=== PATIENT | female | born 1955 | race Caucasian/White ===

== ENCOUNTER 2020-03-14 00:30 | Outpatient (CLI) | payer BC, SELFPAY ==
[2020-03-14 17:34] LABS: SARS-CoV-2 RNA PCR Negative
== END 2020-03-14 00:31 | disposition home or self-care (01) ==
LOC: ANHCOVIDDT 00:30
PROVIDERS: PCP Family Medicine; Visit Provider Internal Medicine Gastroenterology
DX: Z01.818 Encounter for other preprocedural examination (principal); Z11.59 Encounter for screening for other viral diseases
CPT/HCPCS: 87635; C9803; U0003

== ENCOUNTER 2020-03-16 01:17 | Day surgery (SDC) | payer BC, SELFPAY ==
[2020-03-09 14:20] VITALS: BMI 35.2
[2020-03-16 09:55] VITALS: BP 164/84; PULSE 72; RESP 18; TEMP 36.4; O2SAT 98
--- NOTE | 2020-03-16 10:06 | WPDANESEPPF ---
Anes - Initial Pre Proc Eval Procedure: Operation Date: 03/16/20 10:30 Proposed Procedures p Screening Colonoscopy - Jarrell Prasad MD Date/Time: 03/16/20 10:06 Surgeon: Jarrell Prasad MD Pre Op Diagnosis: neoplasm screening and fm hx of colon ca Patient Data Age: 64 Gender: F Height: 1.63 m Weight: 92.6 kg Last Vital Signs Temp 36.4 C 03/16/20 09:55 Pulse 72 03/16/20 09:55 Resp 18 03/16/20 09:55 BP 164/84 H 03/16/20 09:55 Pulse Ox 98 03/16/20 09:55 Allergies Allergy/AdvReac Type Severity Reaction Status Date / Time naproxen Allergy Severe Swelling Verified 03/16/20 09:54 of Lip/Tongue/Throat erythromycin base Allergy Intermediate Nausea and Verified 03/16/20 09:54 Vomiting Home Medications Medication Instructions Recorded Confirmed Type atorvastatin 10 mg tablet 10 mg PO DAILY 08/26/19 03/16/20 History esomeprazole magnesium 40 mg 40 mg PO DAILY 08/26/19 03/16/20 History capsule,delayed release metoprolol succinate 25 mg 25 mg PO DAILY 08/26/19 03/16/20 History tablet,extended release 24 hr quinapril 20 mg tablet 20 mg PO DAILY 08/26/19 03/16/20 History tamoxifen 20 mg tablet 20 mg PO DAILY 08/26/19 03/16/20 History multivitamin 1 tablet PO DAILY 09/01/19 03/16/20 History calcium carbonate 600 mg (1,500 2 tablet PO DAILY tablet 01/20/20 03/16/20 History mg)-vitamin D3 400 unit tablet diclofenac sodium 50 mg PO DAILY PRN 03/09/20 03/16/20 History lactobacillus combination no.8 3,000 mmu cells PO DAILY 03/09/20 03/16/20 History [Adult Probiotic] Patient hx anesthesia problems: none Family hx anesthesia problems: none PMFSH Past Medical History Medical History (Updated 01/20/20 @ 09:56 by Viktoria Morrow DO) Ductal carcinoma in situ (DCIS) of left breast (~06/2010) Essential (primary) hypertension History of chemotherapy (~08/21/10) History of radiation therapy (~07/22/10) Metabolic syndrome Mixed hyperlipidemia Obesity, unspecified Prediabetes Surgical History Surgical History (Updated 08/26/19 @ 15:00 by Evon Snow, [facility]) History of colonoscopy (~07/21/14) History of hysterectomy with bilateral oophorectomy (~07/02/17) History of lumpectomy of left breast (~06/2010) Family History Family History (Updated 01/20/18 @ 12:47 by DOCTOR UNKNOWN) Father Diabetes mellitus Hypertension Family history of elevated blood lipids Family history of coronary artery disease Grandparent Diabetes mellitus Hypertension Family history of elevated blood lipids Mother Diabetes mellitus Hypertension Family history of elevated blood lipids Sibling Diabetes mellitus Hypertension Family history of elevated blood lipids Carcinoma of colon Family history of malignant neoplasm of brain Social History Social History Smoking status: Never smoker Alcohol intake: current Anes - Eval Final PreProcedure Day of Procedure 03/16/20 10:06 Patient weight: obese Heart: regular rate and rhythm Lungs: clear to auscultation and normal air movement Airway: Mallampati scale class III Neurological: alert and oriented Last oral intake: >/= 8 hours ASA classification: III Emergent: no Anesthetic plan: proceed Anesthesia type and monitoring: general GIVS and standard monitoring Informed Consent: The patient's anesthetic plan and its attendant risks and benefits were discussed with the patient/family/POA. Questions were solicited and answers provided to the satisfaction of the patient/family/POA.
[2020-03-16] MEDS: LACTATED RINGERS 1,000 ML 150 ML IV CONT (10:12)
--- NOTE | 2020-03-16 10:22 | WPDGICN ---
Assessment and Plan Assessment and plan (1) History of colon polyps: Code(s): Z86.010 - Personal history of colonic polyps Status: Acute Assessment and Plan: Plan is for screening colonoscopy now in at least every 5 years in the future because of her prior history of colon polyps. There is also family history of colon cancer in her sister. (2) Obesity, unspecified: Code(s): E66.9 - Obesity, unspecified Status: Chronic GI Consult Note Consult date/time: 03/16/20 10:22 HPI: Christa Conteh is a 64 year old female Seen in evaluation at the request of Dr. Viktoria Garland. patient presents for screening colonoscopy. She has a distant history of colon polyps. Family history is significant that her sister had colon cancer. Her brother is had brain cancer patient herself has had breast cancer in the past. She currently reports normal bowel movements. She denies any any abdominal pain. Her bowel habits are regular without blood in her stools. Her weight has remained stable. Review of Systems Review of Systems: All systems reviewed & are unremarkable except as noted in HPI and below PMFSH Past Medical History Medical History Ductal carcinoma in situ (DCIS) of left breast (~06/2010) Essential (primary) hypertension History of chemotherapy (~08/21/10) History of radiation therapy (~07/22/10) Metabolic syndrome Mixed hyperlipidemia Obesity, unspecified Prediabetes Surgical History Surgical History History of colonoscopy (~07/21/14) History of hysterectomy with bilateral oophorectomy (~07/02/17) History of lumpectomy of left breast (~06/2010) Family History Family History Father Diabetes mellitus Hypertension Family history of elevated blood lipids Family history of coronary artery disease Grandparent Diabetes mellitus Hypertension Family history of elevated blood lipids Mother Diabetes mellitus Hypertension Family history of elevated blood lipids Sibling Diabetes mellitus Hypertension Family history of elevated blood lipids Carcinoma of colon Family history of malignant neoplasm of brain Social History Social History Smoking status: Never smoker Alcohol intake: current Meds Home Medications and Allergies Home Medications Medication Instructions Recorded Confirmed Type atorvastatin 10 mg tablet 10 mg PO DAILY 08/26/19 03/16/20 History esomeprazole magnesium 40 mg 40 mg PO DAILY 08/26/19 03/16/20 History capsule,delayed release metoprolol succinate 25 mg 25 mg PO DAILY 08/26/19 03/16/20 History tablet,extended release 24 hr quinapril 20 mg tablet 20 mg PO DAILY 08/26/19 03/16/20 History tamoxifen 20 mg tablet 20 mg PO DAILY 08/26/19 03/16/20 History multivitamin 1 tablet PO DAILY 09/01/19 03/16/20 History calcium carbonate 600 mg (1,500 2 tablet PO DAILY tablet 01/20/20 03/16/20 History mg)-vitamin D3 400 unit tablet diclofenac sodium 50 mg PO DAILY PRN 03/09/20 03/16/20 History lactobacillus combination no.8 3,000 mmu cells PO DAILY 03/09/20 03/16/20 History [Adult Probiotic] Allergies Allergy/AdvReac Type Severity Reaction Status Date / Time naproxen Allergy Severe Swelling Verified 03/16/20 09:54 of Lip/Tongue/Throat erythromycin base Allergy Intermediate Nausea and Verified 03/16/20 09:54 Vomiting Vital Signs Vital Signs - 24 hr 03/16/20 09:55 Temperature 36.4 C Pulse Rate 72 Respiratory Rate 18 Blood Pressure 164/84 H Pulse Oximetry 98 Exam Narrative: Exam Narrative: Physical exam reveals patient to be alert. Vital signs stable. HEENT exam is unremarkable. Lungs are clear to auscultation and percussion. Heart is without murmur or extra sounds. Abdominal exam bowel sounds are p
[2020-03-16 11:44] VITALS: BP 154/88; PULSE 62; RESP 14; O2SAT 99
[2020-03-16 11:54] VITALS: BP 135/89; PULSE 66; RESP 14; O2SAT 99
[2020-03-16 12:04] VITALS: BP 175/95; PULSE 64; RESP 14; O2SAT 99
== END 2020-03-16 12:21 | disposition home or self-care (01) ==
PROVIDERS: PCP Family Medicine; Visit Provider Internal Medicine Gastroenterology
PROC: 0DJD8ZZ Inspection of Lower Intestinal Tract, Via Natural or Artificial Opening Endoscopic (ICD-10-PCS; CPT 45378; principal; 2020-03-16 10:30)
DX: Z12.11 Encounter for screening for malignant neoplasm of colon (principal); K57.30 Diverticulosis of large intestine without perforation or abscess without bleeding; K64.8 Other hemorrhoids; Z86.010 Personal history of colon polyps; Z85.3 Personal history of malignant neoplasm of breast; I10 Essential (primary) hypertension; E66.9 Obesity, unspecified; E78.2 Mixed hyperlipidemia
CPT/HCPCS: 45378; J2704; J7120

== ENCOUNTER 2020-04-19 14:53 | Outpatient (CLI) | payer BC, SELFPAY ==
--- NOTE | ~2020-04-19 | MM_ITS ---
EXAMINATION: MM screening dena BI w monet HISTORY: Screening mammogram TECHNIQUE: Craniocaudal and mediolateral oblique 3-D tomosynthesis images were obtained and synthetic 2-D images were generated. CAD analysis was submitted and interpreted. COMPARISON: 04/12/2019, 03/11/2018, 03/09/2017, 02/23/2015, 03/02/2014 bilateral digital screening mammogra m examinations BREAST PARENCHYMAL COMPOSITION: There are scattered areas of fibroglandular density. FINDINGS: There is chronic posterior asymmetric density and retraction at the left axillary tail area ; history of prior partial left mastectomy for breast cancer. There is no evidence of interval suspic ious mass, calcification, or architectural distortion to suggest malignancy in either breast. There h as been no suspicious interval change. IMPRESSION: 1. No mammographic evidence of malignancy. 2. Recommend routine screening mammography in one year. BI-RADS Category 2: Benign finding(s). Reviewed, dictated and finalized at location A.
== END 2020-04-19 14:54 | disposition home or self-care (01) ==
LOC: ANHIMG 14:54
PROVIDERS: PCP Family Medicine; Visit Provider Nurse Practitioner Obstetrics & Gynecology
DX: Z12.31 Encounter for screening mammogram for malignant neoplasm of breast (principal)
CPT/HCPCS: 77063; 77067

== ENCOUNTER 2021-03-25 13:44 | Emergency (ER) | payer BC, SELFPAY ==
--- NOTE | ~2021-03-25 | XR_ITS ---
EXAMINATION: XR lumbar spine 2-3V EXAM DATE: 03/25/2021 18:58 INDICATION: New sciatic pain, coccygeal pain down left hip. Difficulty moving. TECHNIQUE: Lumber spine frontal, lateral, lateral L5-S1 projections for interpretation. Comparison is made to prior examination from 04/18/2011. FINDINGS: There is mild to moderate lower lumbar facet arthropathy, some progression compared to 201 1. The vertebral bodies are aligned in the AP dimension. Vertebral body and disc heights are well-kali ntained. Sacrum, sacroiliac joints, sacral arcuate lines are intact. Paraspinal soft tissue is unrema rkable. There are no bony erosions identified. IMPRESSION: 1. Mild to moderate facet arthropathy. Reviewed, dictated and finalized at location A.
[2021-03-25 15:24] VITALS: BP 130/68; PULSE 77; RESP 16; TEMP 36.1; O2SAT 99
--- NOTE | 2021-03-25 19:27 | ED.GENADULT ---
HPI - General Adult General Chief complaint: Unspecified Stated complaint: L HIP,and tailbone Pain Time Seen by Provider: 03/25/21 17:56 Related Data Home Medications Medication Instructions Recorded Confirmed esomeprazole magnesium 40 mg 40 mg PO DAILY 08/26/19 03/19/21 capsule,delayed release tamoxifen 20 mg tablet 20 mg PO DAILY 08/26/19 03/19/21 multivitamin 1 tablet PO DAILY 09/01/19 03/19/21 calcium carbonate 600 mg (1,500 2 tablet PO DAILY tablet 01/20/20 03/19/21 mg)-vitamin D3 400 unit tablet lactobacillus combination no.8 3,000 mmu cells PO DAILY 03/09/20 03/19/21 [Adult Probiotic] Allergies Allergy/AdvReac Type Severity Reaction Status Date / Time naproxen Allergy Severe Swelling Verified 03/25/21 17:01 of Lip/Tongue/Throat erythromycin base AdvReac Intermediate Nausea and Verified 03/25/21 19:18 Vomiting PMFSH Past Medical History Medical History (Updated 03/25/21 @ 21:31 by Carmen Claros PA-C) Ductal carcinoma in situ (DCIS) of left breast (~06/2010) Essential (primary) hypertension History of chemotherapy (~08/21/10) History of radiation therapy (~07/22/10) Metabolic syndrome Mixed hyperlipidemia Obesity, unspecified Prediabetes Surgical History Surgical History History of colonoscopy (~07/21/14) History of hysterectomy with bilateral oophorectomy (~07/02/17) History of lumpectomy of left breast (~06/2010) Family History Family History Father Diabetes mellitus Hypertension Family history of elevated blood lipids Family history of coronary artery disease Grandparent Diabetes mellitus Hypertension Family history of elevated blood lipids Mother Diabetes mellitus Hypertension Family history of elevated blood lipids Sibling Diabetes mellitus Hypertension Family history of elevated blood lipids Carcinoma of colon Family history of malignant neoplasm of brain Social History Social History Smoking end date: 06/21/81 Alcohol intake: current Gender identity (if verbalized by the patient): Female Course Course Emergency Course: Reviewed x-ray results with patient which show osteoarthritis. Patient was concerned that her mother does have a history of kidney stones and could this be the same. I am unable to elicit any pain in her abdomen with palpation or with kidney compression. We will do a UA to check for hematuria. Most likely is sciatica related to a long car ride from [facility] last night and this morning. Vital Signs Vital signs: Vital Signs Temperature 36.1 C L 03/25/21 15:24 Pulse Rate 77 03/25/21 15:24 Respiratory Rate 16 03/25/21 15:24 Blood Pressure 130/68 03/25/21 15:24 Pulse Oximetry 99 03/25/21 15:24 Temperature 36.1 C L 03/25/21 15:24 Pulse Rate 77 03/25/21 15:24 Respiratory Rate 16 03/25/21 15:24 Blood Pressure 130/68 03/25/21 15:24 Pulse Oximetry 99 03/25/21 15:24 Medical Decision Making Vital Signs Vital Signs: Vital Signs Temperature 36.1 C L 03/25/21 15:24 Pulse Rate 77 03/25/21 15:24 Respiratory Rate 16 03/25/21 15:24 Blood Pressure 130/68 03/25/21 15:24 Pulse Oximetry 99 03/25/21 15:24 Temperature 36.1 C L 03/25/21 15:24 Pulse Rate 77 03/25/21 15:24 Respiratory Rate 16 03/25/21 15:24 Blood Pressure 130/68 03/25/21 15:24 Pulse Oximetry 99 03/25/21 15:24 Discharge Plan Discharge Clinical Impression: Sciatica of left side UTI (urinary tract infection) Qualifiers: Urinary tract infection type: site unspecified Hematuria presence: without hematuria Qualified Code(s): N39.0 - Urinary tract infection, site not specified Patient Disposition: Home, Self-Care Condition: Stable Instructions: Antibiotic Form, Sciatica (ED) Additional Instructions:
[2021-03-25] MEDS: HYDROmorphone HCL INJ (*CRX) 1 MG/ML SYR IM (19:43)
[2021-03-25 21:06] LABS: Add Urine Microscopic? YES; Appearance Urine Clear (Clear); Bacteria Urine Trace /hpf; Bilirubin Urine Negative (Negative); Blood Urine Negative (Negative); Color Urine Straw (Yellow); Glucose Urine UA Negative (Negative); Ketones Urine Negative (Negative); Leukocyte Esterase Ur 2+ LEU/UL (Negative); Mucus Urine Rare /lpf; Nitrate Urine Negative (Negative); Protein Urine Negative (Negative); Specific Grav Ur 1.011 (1.001-1.035); Squamous Epithelial Cell Urine Rare /hpf (Few); Urobilinogen Urine Negative mg/dL (<2.0); WBC Urine 21-30 /hpf
--- NOTE | 2021-03-25 21:35 | ED.GENADULT ---
HPI - General Adult General Chief complaint: Unspecified Stated complaint: L HIP,and tailbone Pain Time Seen by Provider: 03/25/21 17:56 Source: patient and family () Mode of arrival: wheelchair Limitations: no limitations History of Present Illness HPI narrative: Pt here for evaluation of left back and hip pain. She had pain across her upper abdomen earlier in the month. And the pain seems to have traveled to her lower back. She is now having pain in her left leg when she walks. It is much worse after a 6 hr car ride today. She just completed a medrol dose rigoberto for earlier pain. Onset (ago): day(s) Location: buttocks and left Severity: severe Quality: stabbing Pain Consistency: constant Relieving factors: rest Exacerbating factors: movement Associated symptoms: denies other symptoms Related Data Home Medications Medication Instructions Recorded Confirmed esomeprazole magnesium 40 mg 40 mg PO DAILY 08/26/19 03/19/21 capsule,delayed release tamoxifen 20 mg tablet 20 mg PO DAILY 08/26/19 03/19/21 multivitamin 1 tablet PO DAILY 09/01/19 03/19/21 calcium carbonate 600 mg (1,500 2 tablet PO DAILY tablet 01/20/20 03/19/21 mg)-vitamin D3 400 unit tablet lactobacillus combination no.8 3,000 mmu cells PO DAILY 03/09/20 03/19/21 [Adult Probiotic] Allergies Allergy/AdvReac Type Severity Reaction Status Date / Time naproxen Allergy Severe Swelling Verified 03/25/21 17:01 of Lip/Tongue/Throat erythromycin base AdvReac Intermediate Nausea and Verified 03/25/21 19:18 Vomiting Review of Systems Review of Systems: All systems reviewed & are unremarkable except as noted in HPI and below PMFSH Past Medical History Medical History (Updated 03/25/21 @ 21:31 by Carmen Claros PA-C) Ductal carcinoma in situ (DCIS) of left breast (~06/2010) Essential (primary) hypertension History of chemotherapy (~08/21/10) History of radiation therapy (~07/22/10) Metabolic syndrome Mixed hyperlipidemia Obesity, unspecified Prediabetes Surgical History Surgical History History of colonoscopy (~07/21/14) History of hysterectomy with bilateral oophorectomy (~07/02/17) History of lumpectomy of left breast (~06/2010) Family History Family History Father Diabetes mellitus Hypertension Family history of elevated blood lipids Family history of coronary artery disease Grandparent Diabetes mellitus Hypertension Family history of elevated blood lipids Mother Diabetes mellitus Hypertension Family history of elevated blood lipids Sibling Diabetes mellitus Hypertension Family history of elevated blood lipids Carcinoma of colon Family history of malignant neoplasm of brain Social History Social History Smoking end date: 06/21/81 Alcohol intake: current Gender identity (if verbalized by the patient): Female Exam Const: General: no acute distress and alert Orientation/consciousness: patient oriented x3 Resp: Effort & Inspection: normal respiratory effort Auscultation: clear to auscultation bilaterally Cardio: Rate: regular rate Rhythm: regular rhythm GI: GI Palp: Yes Soft to palpation Percussion: Yes normal to percussion Auscultation: normal bowel sounds : General: Yes no CVA tenderness Back/Spine/Pelvis: Sacroiliac joints: on the left Skin: General skin exam: normal color Extrem: General: normal to inspection and no clubbing, cyanosis or edema Psych: Mental Status: mental status grossly normal Course Course Emergency Course: Reviewed xray results with patient. Will treat sciatica with home medications. Pt is concerned now for kidney stone, as her mother has had them. UA showed UTI. No gross hematuria.Will treat with macrobid. Vital Signs Vital signs: Vital Signs Temperature 36.1 C L 03/25/21 15:24 Pu
[2021-03-25] MEDS: NITROFURANTOIN MONOHYD MACROCR 100 MG CAP PO (21:44)
== END 2021-03-25 21:41 | disposition home or self-care (01) ==
PROVIDERS: Physician Assistant; Emergency Provider Emergency Medicine; PCP Family Medicine
DX: M54.32 Sciatica, left side (principal); N39.0 Urinary tract infection, site not specified; I10 Essential (primary) hypertension; E78.2 Mixed hyperlipidemia; Z85.3 Personal history of malignant neoplasm of breast
CPT/HCPCS: 72100; 81001; 87086; 96372; 99283; A9270; J1170

== ENCOUNTER 2021-04-26 13:30 | Outpatient (CLI) | payer BC, SELFPAY ==
--- NOTE | ~2021-04-26 | MM_ITS ---
EXAMINATION: MM diagnostic dena BI w monet HISTORY: History of breast cancer TECHNIQUE: Additional 3-D tomosynthesis images of the breasts were performed and synthetic 2-D images were generated. CAD analysis was submitted and interpreted. COMPARISON: Comparison to multiple prior studies sequentially, with oldest reviewed study dated 03/05. BREAST PARENCHYMAL COMPOSITION: Breast composed of scattered areas of fibroglandular density. FINDINGS: No suspicious masses, calcifications or architectural distortion are identified to suggest malignancy. There is chronic asymmetry and retraction in the left axillary tail, consistent with site of previous lumpectomy. IMPRESSION: 1. No mammographic evidence for malignancy. 2. Routine yearly screening mammogram and regular clinical breast examination are recommended. BI-RADS Category 2: Benign finding(s). Reviewed, dictated and finalized at location A. IMPRESSION: 1. No mammographic evidence for malignancy. 2. Routine yearly screening mammogram and regular clinical breast examination a re recommended. BI-RADS Category 2: Benign finding(s).
== END 2021-04-26 13:31 | disposition home or self-care (01) ==
PROVIDERS: PCP Family Medicine; Visit Provider Nurse Practitioner Obstetrics & Gynecology
DX: Z85.3 Personal history of malignant neoplasm of breast (principal)
CPT/HCPCS: 77062; 77066; G0279